=== PATIENT | female | born 1950 | race Caucasian/White ===

== ENCOUNTER 2016-11-19 14:35 | Emergency (ER) | payer MEDICAID, OTHER ==
[~2016-11-19] VITALS: Ht 160 cm; Wt 77.1 kg
[2016-11-19] MEDS ORDERED: VITA1CAP47 PO (15:11)
[2016-11-19] MEDS ORDERED: MONT10TA25 PO (15:11)
[2016-11-19] MEDS ORDERED: OMEP40CA PO (15:11)
[2016-11-19] MEDS ORDERED: ATOR20TA PO (15:11)
[2016-11-19] MEDS ORDERED: ASPI81TA31 PO (15:11)
[2016-11-19] MEDS ORDERED: MAGN250T10 PO (15:11)
[2016-11-19] MEDS ORDERED: LORA-588 PO (15:11)
[2016-11-19] MEDS ORDERED: ALEN70TA3 PO (15:11)
[2016-11-19] MEDS ORDERED: BIOT5000 PO (15:11)
[2016-11-19] MEDS ORDERED: PSYL0.5245 PO (15:11)
[2016-11-19] MEDS ORDERED: CALC-1116 PO (15:11)
[2016-11-19] MEDS ORDERED: CHOL200038 PO (15:11)
[2016-11-19] MEDS ORDERED: UBID100C45 PO (15:11)
[2016-11-19] MEDS ORDERED: FOLI1TAB16 PO (15:11)
[2016-11-19] MEDS ORDERED: MULT-1168 PO (15:11)
[2016-11-19] MEDS ORDERED: AMLO5TAB2 PO (15:11)
[2016-11-19] MEDS ORDERED: HERB1CAP2 PO (15:11)
[2016-11-19] MEDS ORDERED: GABA-534 PO (15:11)
[2016-11-19] MEDS ORDERED: LACT70CA PO (15:11)
--- NOTE | 2016-11-19 15:22 | NUR ---
PT IS IN ROOM #2A. DR CLARK EVALUATED THE PT.
--- NOTE | 2016-11-19 15:29 | NUR ---
PT WAS D/C TO HOME. D/C INSTRUCTIONS GIVEN TO THE PT.
[2016-11-19 15:30] VITALS: BP 136/81
== END 2016-11-19 15:31 | disposition home or self-care (01) ==
LOC: ER 14:35
DX: T80.1XXA Vascular complications following infusion, transfusion and therapeutic injection, initial encounter (principal); I80.9 Phlebitis and thrombophlebitis of unspecified site; I10 Essential (primary) hypertension; E78.5 Hyperlipidemia, unspecified; J45.909 Unspecified asthma, uncomplicated; Z88.0 Allergy status to penicillin; Z79.82 Long term (current) use of aspirin
CPT/HCPCS: A4663